=== PATIENT | male | born 1960 | race Caucasian/White ===

== ENCOUNTER → 2020-12-18 12:06 | Outpatient (BNVA) | payer OTHER, SELFPAY | PROVIDERS: Family Provider Family Medicine; PCP Family Medicine; Referring Provider Family Medicine; Visit Provider Orthopaedic Surgery | DX: S83.241A Other tear of medial meniscus, current injury, right knee, initial encounter (principal); X50.1XXA Overexertion from prolonged static or awkward postures, initial encounter; M25.569 Pain in unspecified knee | CPT/HCPCS: 73560; 73565 ==

== ENCOUNTER → 2020-12-29 13:35 | Outpatient (BNVA) | payer OTHER, SELFPAY | PROVIDERS: Family Provider Family Medicine; PCP Family Medicine; Visit Provider Orthopaedic Surgery | DX: Z01.812 Encounter for preprocedural laboratory examination (principal); Z20.828 Contact with and (suspected) exposure to other viral communicable diseases | CPT/HCPCS: 87635 ==

== ENCOUNTER 2021-01-04 07:53 | Day surgery (SDC) | payer OTHER, SELFPAY ==
[2021-01-03 13:35] VITALS: BMI 41.5
[2021-01-04] VITALS (11 sets, daily range): BP systolic 140–197; BP diastolic 78–118; PULSE 58–76; RESP 12–20; TEMP 36.1–36.6; O2SAT 94–98
[2021-01-04] MEDS: sodium chloride 0.9% 1,000 ML 30 ML IV (08:45)
--- NOTE | 2021-01-04 09:20 | W.PM.OPSUD ---
Surgery/Procedure H&P Update DATE OF PROCEDURE: January 04, 2021 DATE H&P PERFORMED: 01/18/21 PREOP DIAGNOSIS: Knee Right medial meniscal PLANNED PROCEDURE: Operation Date: 01/04/21 09:30 Proposed Procedures p right knee arthroscopy with medial meniscectomy (40672) S83.241A(Right) - Lg Najera MD
--- NOTE | 2021-01-04 09:25 | ANES.PREANE2 ---
Pre-Anesthetic Assessment Pre-Anesthetic Assessment: Height/Weight: Height 1.78 m Weight 131.542 kg Temp Pulse Resp BP Pulse Ox 97 F L 58 L 18 196/102 97 01/04/21 08:23 01/04/21 08:23 01/04/21 08:23 01/04/21 08:30 01/04/21 08:23 Preop Diagnosis: Knee Right medial meniscal Proposed Procedure: Operation Date: 01/04/21 09:30 Proposed Procedures p right knee arthroscopy with medial meniscectomy (25627) S83.241A(Right) - Lg Najera MD Was Beta Gil taken within 24 hours: Yes Was Clonidine taken within 24 hours: N/A Last intake: Intake Last Liquid Date 01/03/21 Last Liquid Time 20:00 Last Solid Date 01/03/21 Last Solid Time 16:30 Social: Social History: No alcohol and No tobacco Exam: Pre-Anes Outpt Exam: alert, oriented x 3, clear to auscultation bilaterally and regular rate & rhythm Airway: Submandibular: WNL Cervical ROM: WNL Dentition: False CV/HEM: CV/HEM: HTN Metabolic: Metabolic: Morbid obesity Anesthetic Plan: ASA status: 3 Anesthesia: General Risk of > 500 ml blood loss (7ml/kg in children): No Meds/Allergies Current Medications: Current Medications Generic Name Dose Route Start Last Admin Trade Name Freq PRN Reason Stop Dose Admin Sodium Chloride 1,000 mls @ 30 ml s/hr 01/04/21 08:15 01/04/21 08:45 Sodium Chloride 0.9% IV 01/05/21 08:14 30 mls/hr .Q24H ZHEN Administration Data Anesthesia Cardiac Studies: No Data to Display
[2021-01-04] MEDS: morphine 4 mg/mL SDV 1 mL 8 MG IM (09:45)
--- NOTE | 2021-01-04 10:33 | P.OP_ITS ---
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 He has areas of flaps and thinning over the central weightbearing aspect the medial femoral condyle but no point was exposed subchondral bone identified. He had thinning and flaps over the central patellar ridge Condition: stable Procedure: again with no exposed subchondral bone patient was taken to the operating room and given a general anesthesia. He was prepped and draped in the supine position with a tourniquet on the right thigh. The tourniquet was never inflated. He was given 2 g of Ancef. A timeout was performed. The knee was entered through a standard inferior medial and inferior lateral portal. Once in the knee the complex tearing the meniscus was divided. Additionally central flaps from the posterior third of the medial meniscus were debrided back with incisor shaver. This rim was then cleaned up with the [employer] Werewolf probe on the medium setting. This left approximately 40% of the superior peripheral meniscus remaining. A larger flap was identified within the notch and the [employer]hew Werewolf probe was used to debride this back to a stable base. Attention was then focused on chondral surfaces. Utilizing the G[employer] Nephew Werewolf probe unstable flaps over the medial femoral condyle weightbearing surface were debrided back to stable margins. At no point was exposed subch ondral bone identified. The leg was then placed in a [id number] position revealing a healthy lateral compartment. Finally attention was focused on the patella. The werewolf probe was used to debride unstable flaps about the central ridge of back. This involved removal perhaps just over 50% of the central patellar cartilage. The knee was irrigated with saline. Portals were closed with 3-0 Prolene. Sterile dressings were applied. The patient was extubated taken to recovery room in stable condition.
[2021-01-04] MEDS: fentaNYL 50 mcg/mL INJ 2mL IVP (10:43)
[2021-01-04] MEDS: hyDRALAzine 20 mg/mL INJ 1 mL 5 MG IVP (10:50)
[2021-01-04] MEDS: ondansetron 2 mg/ML SDV 2 mL 4 MG IVP (11:34)
[2021-01-04] MEDS: HYDROcodone-acetaminophen 5-325 mg Tablet 1 TAB PO (11:35)
--- NOTE | 2021-01-04 14:44 | ANE.PACU2 ---
Inpatient post-anesthesia follow up: Airway intact: Yes Vital signs: Temperature 97.9 F Pulse Rate 74 Respiratory Rate 18 Blood Pressure 147/78 Pulse Oximetry 98 Oxygen Delivery Me thod Room Air Oxygen Flow Rate Fraction of Inspir ed Oxygen Hydration adequate: Yes Nausea and vomiting: No Pain level: 2 Mental status: Baseline
== END 2021-01-04 12:27 | disposition home or self-care (01) ==
PROVIDERS: PCP Family Medicine; Visit Provider Orthopaedic Surgery
PROC: (CPT 29870; principal; 2021-01-04 09:20)
DX: S83.241A Other tear of medial meniscus, current injury, right knee, initial encounter (principal); X50.1XXA Overexertion from prolonged static or awkward postures, initial encounter; I10 Essential (primary) hypertension; E66.01 Morbid (severe) obesity due to excess calories; Z68.41 Body mass index [BMI] 40.0-44.9, adult; Z79.82 Long term (current) use of aspirin
CPT/HCPCS: 29881; 96365; J0360; J0690; J2270; J2405; J2704; J3010; J3490; J7030

== ENCOUNTER 2021-09-25 09:17 | Outpatient (CLI) | payer OTHER, SELFPAY ==
--- NOTE | 2021-09-25 09:22 | USCV_ITS ---
Amando Noonan Age: 61 Gender: M : 1960 Exam Date: 09/25/2021 09:51 Ordering Phys: Ashkan Soto Technologist: Exam Location: [facility] – [place] Indication: LT LEG PAIN HISTORY: Lower extremity pain. PROCEDURES: Venous duplex imaging was performed in only the left lower extremity. The following venous structures were evaluated: common femoral vein, profunda vein, proximal portion of the greater saphenous vein, superficial femoral vein, and the popliteal vein. In addition, the posterior tibial and peroneal trunk were evaluated. On the left side, the common femoral, superficial femoral, profunda femoral, popliteal, posterior tibial, greater saphenous veins, and the peroneal trunk were identified and interrogated in the standard fashion. These veins were found to be easily compressible with spontaneous blood flow. No evidence of insufficiency or thrombus noted. FINDINGS: Normal 2-D Doppler and augmentation and compressibility throughout the lower extremity venous structures. Additional imaging through the proximal calf veins also reveals no thrombus. Limited evaluation of the greater saphenous vein is patent with no thrombus.. CONCLUSIONS No evidence of left lower extremity DVT. Garth Worley MD (Electronically Signed) Final Date: 25 September 2021 16:27 S
== END 2021-09-25 09:18 | disposition home or self-care (01) ==
LOC: RAD 09:19
PROVIDERS: PCP Family Medicine; Visit Provider Clinical Nurse Specialist Adult Health
DX: M79.605 Pain in left leg (principal)
CPT/HCPCS: 93971

== ENCOUNTER → 2022-08-21 10:19 | Outpatient (BNVA) | payer OTHER, SELFPAY | PROVIDERS: PCP Family Medicine; Visit Provider Family Medicine | DX: I10 Essential (primary) hypertension (principal); Z00.00 Encounter for general adult medical examination without abnormal findings | CPT/HCPCS: 80053; 80061 ==

== ENCOUNTER → 2023-09-05 08:04 | Outpatient (BNVA) | payer OTHER, SELFPAY | PROVIDERS: PCP Family Medicine; Visit Provider Family Medicine | DX: Z00.00 Encounter for general adult medical examination without abnormal findings (principal) | CPT/HCPCS: 80053; 80061 ==

== ENCOUNTER → 2024-10-22 08:12 | Outpatient (BNVA) | payer OTHER, SELFPAY | PROVIDERS: PCP Family Medicine; Visit Provider Family Medicine | DX: I10 Essential (primary) hypertension (principal); R35.1 Nocturia | CPT/HCPCS: 80053; 80061; 83036; 84153; 85025 ==

== ENCOUNTER → 2025-01-20 07:48 | Outpatient (BNVA) | payer OTHER, SELFPAY | PROVIDERS: PCP Family Medicine; Visit Provider Family Medicine | DX: I10 Essential (primary) hypertension (principal) | CPT/HCPCS: 80048; 83735 ==

== ENCOUNTER 2025-01-25 06:21 | Day surgery (SDC) | payer OTHER, SELFPAY ==
[2025-01-25 06:41] VITALS: BP 197/115; PULSE 63; RESP 18; TEMP 36.1; O2SAT 96; BMI 40.4
[2025-01-25] MEDS: sodium chloride 0.9% 1,000 ML 15 ML IV (06:52)
--- NOTE | 2025-01-25 07:06 | W.PM.OPSFHP ---
Same Day Surgery H&P Indication for Procedure/HPI DATE OF PROCEDURE: January 25, 2025 CHIEF COMPLAINT/INDICATIONFOR SURGICAL PROCEDURE: screening colonoscopy PREOP DIAGNOSIS: screening colonoscopy PLANNED PROCEDURE: Operation Date: 01/25/25 07:30 Proposed Procedures p Colonoscopy 18201 G0121 Z12.11(Not Applicable) - Anoop Hu MD Medications/Allergies* Home Medications ?Medication ?Instructions ?Recorded ?Confirmed ?Type aspirin 81 mg chewable tablet 81 mg PO DAILY 12/18/20 01/25/25 History multivitamin 1 tab PO DAILY 12/09/24 01/25/25 History turmeric 400 mg capsule 400 mg PO BID 12/09/24 01/25/25 History metoprolol tartrate 100 mg tablet 100 mg PO DAILY 12/22/24 01/20/25 History Allergies/Adverse Reactions Allergy/AdvReac Type Severity Reaction Status Date / Time No Known Allergies Allergy Verified 01/19/25 12:58 Current Medications: Generic Name Dose Route Start Last Admin Trade Name Freq PRN Reason Stop Dose Admin Sodium Chloride 1,000 mls @ 15 mls/hr 01/25/25 06:32 01/25/25 06:52 Sodium Chloride 0.9% IV 01/26/25 06:31 15 mls/hr .Q24H PRN Administration COLONOSCOPY FLUIDS Pertinent History/Comorbid Conditions* Medical History (Updated 01/20/25 @ 07:44 by Roberto Aguilera MD) Hypertension Family History (Updated 12/09/24 @ 08:01 by FARSHAD Reveles) Diabetes Mother Father Hypertension Mother Father Social History Smoking and tobacco/nicotine status: unknown if used tobacco/nicotine Pertinent Exam Findings alert, oriented x 3, clear to auscultation bilaterally, regular rate & rhythm and procedure specific exam findings abdomen soft, nt, nd Recommendations Risks and benefits of procedure reviewed Surgery/Procedure today Coding Level of Care Code Acute Code for Chg Fwd
--- NOTE | 2025-01-25 07:06 | ANES.PREANE2 ---
Pre-Anesthetic Assessment Height/Weight: Height 1.8 m Weight 131.542 kg Temp Pulse Resp BP Pulse Ox O2 Del Method 97 F L 63 18 197/115 96 Room Air 01/25/25 06:41 01/25/25 06:41 01/25/25 06:41 01/25/25 06:41 01/25/25 06:41 01/25/25 06:41 Preop Diagnosis: Anemia Operation Date: 01/25/25 07:30 Proposed Procedures p Colonoscopy 77398 G0121 Z12.11(Not Applicable) - Anoop Hu MD Familial anesthetic complications: none Was Beta Gil taken within 24 hours: Yes Was Clonidine taken within 24 hours: N/A Last intake: Intake Last Liquid Date 01/24/25 Last Liquid Time 18:00 Last Solid Date 01/23/25 Last Solid Time 16:00 Social No alcohol and No tobacco Exam alert, oriented x 3, clear to auscultation bilaterally and regular rate & rhythm distant heart/breath sounds Airway Cervical ROM: within normal limits Mallampati: Class III Dentition: false Comments: Comments: short thick neck Pulmonary Sleep Apnea (probable) CV/HEM Hypertension None reported Hepatic None reported GI Gastroesophageal Reflux Disease Metabolic Morbid Obesity [facility] [place] None reported Neuropsych None reported Anesthetic Plan ASA status: 3 Anesthesia: MAC Risk of > 500 ml blood loss (7ml/kg in children): No Medications/Allergies Home Medications ?Medication ?Instructions ?Recorded ?Confirmed ?Last Taken ?Type aspirin 81 mg chewable tablet 81 mg PO DAILY 12/18/20 01/25/25 01/23/25 History losartan 50 mg tablet 50 mg PO DAILY #90 tabs 11/12/24 01/20/25 01/24/25 Rx multivitamin 1 tab PO DAILY 12/09/24 01/25/25 01/23/25 History turmeric 400 mg capsule 400 mg PO BID 12/09/24 01/25/25 01/23/25 History metoprolol tartrate 100 mg tablet 100 mg PO DAILY 12/22/24 01/20/25 01/25/25 History chlorthalidone 50 mg tablet 50 mg PO DAILY #30 tabs 01/20/25 01/25/25 01/23/25 Rx meloxicam 15 mg tablet See Rx Instructions .Route 01/21/25 01/25/25 01/23/25 Rx .COMPLEX #30 tabs Allergies Allergy/AdvReac Type Severity Reaction Status Date / Time No Known Allergies Allergy Verified 01/19/25 12:58 Current Medications Generic Name Dose Route Start Last Admin Trade Name Freq PRN Reason Stop Dose Admin Sodium Chloride 1,000 mls @ 15 mls/hr 01/25/25 06:32 01/25/25 06:52 Sodium Chloride 0.9% IV 01/26/25 06:31 15 mls/hr .Q24H PRN Administration COLONOSCOPY FLUIDS PFSH Anesthesia Medical History Hypertension Family History Mother Diabetes Hypertension Father Diabetes Hypertension Social History Smoking and tobacco/nicotine status: unknown if used tobacco/nicotine Data Anesthesia Cardiac Studies: No Data to Display
[2025-01-25 07:47] VITALS: BP 186/114; PULSE 65; RESP 14; TEMP 36.3; O2SAT 96
[2025-01-25 08:07] VITALS: BP 156/88; PULSE 64; RESP 16; O2SAT 96
--- NOTE | 2025-01-25 08:20 | ANE.PACU2 ---
Inpatient post-anesthesia follow up: Airway intact: Yes Vital signs: Temperature 97.4 F Pulse Rate 64 Respiratory Rate 16 Blood Pressure 156/88 Pulse Oximetry 96 Oxygen Delivery Me thod Room Air Oxygen Flow Rate Fraction of Inspir ed Oxygen Hydration adequate: Yes Nausea and vomiting: No Pain level: 1 Mental status: Baseline
--- NOTE | 2025-01-25 08:20 | SUR.PHASEII ---
Received report from MAYI Cornejo regarding high blood pressure prior to and during procedure, she had administered hydralazine 10 mg. Informed Chantal of pt's decreased post-op BP. See documentation. Chantal instructed pt to take his prescribed BP medication when he returns home, approved discharge.
== END 2025-01-25 08:20 | disposition home or self-care (01) ==
PROVIDERS: PCP Family Medicine; Visit Provider Student in an Organized Health Care Education/Training Program
PROC: 0DJD8ZZ Inspection of Lower Intestinal Tract, Via Natural or Artificial Opening Endoscopic (ICD-10-PCS; CPT 45378; principal; 2025-01-25 07:30)
DX: Z12.11 Encounter for screening for malignant neoplasm of colon (principal); I10 Essential (primary) hypertension; G47.30 Sleep apnea, unspecified; K21.9 Gastro-esophageal reflux disease without esophagitis; E66.01 Morbid (severe) obesity due to excess calories; Z68.41 Body mass index [BMI] 40.0-44.9, adult; Z79.82 Long term (current) use of aspirin; Z79.899 Other long term (current) drug therapy
CPT/HCPCS: 45378; J0360; J2704; J7030

== ENCOUNTER → 2025-06-09 09:45 | Outpatient (BNVA) | payer OTHER, SELFPAY | PROVIDERS: PCP Family Medicine; Visit Provider Family Medicine | DX: R10.9 Unspecified abdominal pain (principal); R51.9 Headache, unspecified | CPT/HCPCS: 80053; 83690; 85025; 86003; 86008 ==

== ENCOUNTER → 2025-08-02 12:17 | Outpatient (BNVA) | payer OTHER, SELFPAY | PROVIDERS: PCP Family Medicine; Visit Provider Family Medicine | DX: R10.9 Unspecified abdominal pain (principal) | CPT/HCPCS: 80053; 83690; 85025; 86140 ==

== ENCOUNTER 2025-08-03 08:21 | Emergency (ER) | payer OTHER, SELFPAY ==
[2025-08-03 08:36] VITALS: BP 130/79; PULSE 63; RESP 18; TEMP 36.8; O2SAT 95; BMI 41.4
--- OUTSIDE RECORDS SUMMARY | 2025-08-03 08:37 | XMS_ITS | Encounter Summary ---
Author Organization [facility] Address [address] [place] [address] Care Team Providers Care Condominium Manager Name Role Phone Unavailable Primary Care Provider Unavailabl e Encounter Details Date Type Department Care Team (Latest Contact Info) Description 07/09/2002 Outpatient Historical HIS [facility] Alphonse Solis MD [address] [place] [address] HYPERTENSION NOS (Primary Dx); Benign mary skin trunk Social History Tobacco Use Types Packs/Day Years Used Date Smoking Tobacco: Never Assessed Sex and Gender Information Value Date Recorded Sex Assigned at Not on file 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
--- OUTSIDE RECORDS SUMMARY | 2025-08-03 08:37 | XMS_ITS | Encounter Summary ---
Author Organization [facility] Address [address] [place] [address] Care Team Providers Care Science Intern Name Role Phone Unavailable Primary Care Provider Unavailabl e Encounter Details Date Type Department Care Team (Latest Contact Info) Description 01/06/2001 Outpatient Historical HIS [facility] Sunny Evans NO ADDRESS ON FILE Unspecified essential hypertension (Primary Dx); Chest pain, unspecified; Unspecified adjustment reaction Social History Tobacco Use Types Packs/Day Years Used Date Smoking Tobacco: Never Assessed Sex and Gender Information Value Date Recorded Sex Assigned at Not on file 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
--- OUTSIDE RECORDS SUMMARY | 2025-08-03 08:37 | XMS_ITS | Encounter Summary ---
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
--- OUTSIDE RECORDS SUMMARY | 2025-08-03 08:37 | XMS_ITS | Encounter Summary ---
Author Organization [facility] Address [address] [place] [address] Care Team Providers Care Senior It Recruiter Name Role Phone Unavailable Primary Care Provider Unavailabl e Encounter Details Date Type Department Care Team (Latest Contact Info) Description 04/27/2002 Outpatient Historical HIS [facility] Alphonse Solis MD [address] [place] [id number] HYPERTENSION NOS (Primary Dx) Social History Tobacco Use Types Packs/Day Years Used Date Smoking Tobacco: Never Assessed Sex and Gender Information Value Date Recorded Sex Assigned at Not on file 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
--- OUTSIDE RECORDS SUMMARY | 2025-08-03 08:37 | XMS_ITS | Encounter Summary ---
Author Organization [facility] Address [address] [place] [address] Care Team Providers Care Cell Inspector Name Role Phone Unavailable Primary Care Provider Unavailabl e Encounter Details Date Type Department Care Team (Latest Contact Info) Description 07/06/2002 Outpatient Historical HIS [facility] Alphonse Solis MD [address] [place] [address] HYPERTENSION NOS (Primary Dx); OBESITY NOS Social History Tobacco Use Types Packs/Day Years Used Date Smoking Tobacco: Never Assessed Sex and Gender Information Value Date Recorded Sex Assigned at Not on file 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
--- OUTSIDE RECORDS SUMMARY | 2025-08-03 08:37 | XMS_ITS | Encounter Summary ---
Author Organization [facility] Address [address] Attn: [place] [address] Care Team Providers Care Advertising Operations Coordinator Name Role Phone Unavailable Primary Care Provider Unavailabl e Encounter Details Date Type Department Care Team (Late st Contact Info) Description 07/12/2002 Outpatient Historical Alphonse Solis MD [address] [place] [address] Social History Tobacco Use Types Packs/Day Years Used Date Smoking Tobacco: Never Assessed Sex and Gender Information Value Date Recorded Sex Assigned at Not on file 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
--- OUTSIDE RECORDS SUMMARY | 2025-08-03 08:37 | XMS_ITS | Encounter Summary ---
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
--- OUTSIDE RECORDS SUMMARY | 2025-08-03 08:37 | XMS_ITS | Encounter Summary ---
Author Organization [facility] Address [address] [place] [address] Care Team Providers Care General Merchandise Salesperson Name Role Phone Unavailable Primary Care Provider Unavailabl e Encounter Details Date Type Department Care Team (Latest Contact Info) Description 06/29/2002 Outpatient Historical HIS [facility] Alphonse Solis MD [address] [place] [address] HYPERTENSION NOS (Primary Dx); AFTERCARE CHARTER COORDINATOR USE MEDICATN Social History Tobacco Use Types Packs/Day Years Used Date Smoking Tobacco: Never Assessed Sex and Gender Information Value Date Recorded Sex Assigned at Not on file 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
--- OUTSIDE RECORDS SUMMARY | 2025-08-03 08:38 | XMS_ITS | Encounter Summary ---
Author Organization [facility] Address [address] [place] [address] Care Team Providers Care Strapper Operator Name Role Phone Unavailable Primary Care Provider Unavailabl e Encounter Details Date Type Department Care Team (Latest Contact Info) Description 10/12/2002 Outpatient Historical HIS [facility] Alphonse Solis MD [address] [place] [phone] HYPERTENSION NOS (Primary Dx) Social History Tobacco Use Types Packs/Day Years Used Date Smoking Tobacco: Never Assessed Sex and Gender Information Value Date Recorded Sex Assigned at Not on file 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
--- OUTSIDE RECORDS SUMMARY | 2025-08-03 08:38 | XMS_ITS | Encounter Summary ---
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
--- OUTSIDE RECORDS SUMMARY | 2025-08-03 08:38 | XMS_ITS | Clinical Summary ---
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
[2025-08-03 10:17] LABS: ABG PCO2 35.1 mmHg (35-45); ABG PH Result 7.49 (7.35-7.45); Alveolar-Arterial Oxygen Gradi 5.2 mmHg (5-10); Arterial Blood Gas Hematocrit 49.4 % (42-52); Blood Gas Allen Test Pos; Blood Gas Sample Site Brachial, right; Blood Gas Sample Type Arterial; Carboxyhemoglobin 0.8 %THgb (0.4-20.1); Glucose Level-ABG 401.0 mg/dL (70-115); HCO3 ABG 26.6 mmol/L (22-26); Ionized Calcium Level - ABG 1.2 mmol/L (1.1-1.4); Methemoglobin 0.9 % (0.4-1.5); Oxygen Saturation ABG 94.2; PO2 ABG 64.0 mmHg (80.0-100.0); PO2 FiO2 Ratio Arterial Blood 304; Potassium Level - ABG 3.0 mmol/L (3.5-5.0); Sodium Level - ABG 132.0 mmol/L (131-143)
[2025-08-03 10:45] LABS: Hematocrit 45.2 % (37-53); Hemoglobin 15.20 g/dL (11.27-16.99); Mean Corpuscular HGB Conc 33.6 g/dL (30-55); Mean Corpuscular Hemoglobin 27.2 pg (27-33); Mean Corpuscular Volume 80.9 fl (82-101); Nucleated Red Blood Cells % 0 %; Platelet Count 246 10^3/cmm (157-399); Red Blood Count 5.59 10^6/uL (3.85-5.65); White Blood Count 10.34 10^3/uL (3.29-11.43)
[2025-08-03 11:05] LABS: Alanine Aminotransferase 49 U/L (0-41); Albumin Level 4.0 g/dL (3.5-5.2); Alkaline Phosphatase 95 U/L (40-130); Anion Gap 17.8 (5-19); Aspartate Amino Transferase 39 U/L (0-40); Blood Urea Nitrogen 24 mg/dL (8-23); Calcium 9.4 mg/dL (8.5-10.5); Carbon Dioxide 24 mmol/L (22-29); Chloride 90 mmol/L (98-107); Creatinine Clr Calc Pharmacy 114.3536; Globulin 3.2 g/dL (1.3-4.6); Glucose 399 mg/dL (65-115); Osmolality Calculated 289 mOsm/kg (285-295); Sodium 129 mmol/L (136-145); Total Protein 7.2 g/dL (6.6-8.7)
[2025-08-03 11:06] LABS: Potassium 2.8 mmol/L (3.5-5.1)
--- NOTE | 2025-08-03 11:07 | W.ED.GENADLT ---
HPI - General Adult General: Chief complaint: General Medical Stated complaint: Dr valle abnormal Labs Time Seen by Provider: 08/03/25 11:05 History of Present Illness: 65-year-old male with a history of obesity, alpha gal and hypertension who presents emergency room with concerns for hyperglycemia. He had been having some abdominal pain for couple of weeks and saw his PCP yesterday ordered lab work and a CT scan. Lab work came back and his glucose was elevated so his doctor told him to come to the emergency room for fluids. He says because of alpha gal he has been getting nauseous every time he eats. He has had some general malaise lately. Some nausea but no vomiting Related Data Home Medications ?Medication ?Instructions ?Recorded ?Confirmed aspirin 81 mg chewable tablet 81 mg PO DAILY 12/18/20 08/03/25 multivitamin 1 tab PO DAILY 12/09/24 08/03/25 metoprolol tartrate 100 mg tablet 100 mg PO BID 12/22/24 08/03/25 meloxicam 15 mg tablet 15 mg PO DAILY 08/03/25 08/03/25 Previous Rx's ?Medication ?Instructions ?Recorded losartan 50 mg tablet 50 mg PO DAILY #90 tabs 11/12/24 chlorthalidone 50 mg tablet 50 mg PO DAILY #90 tabs 02/10/25 epinephrine 0.3 mg/0.3 mL 0.3 mg (0.3 mL) IM Q4H PRN 07/01/25 injection, auto-injector (EpiPen anaphylaxis #2 ea 2-Kevin) glimepiride 1 mg tablet 1 mg PO BID #60 tabs 08/03/25 potassium chloride 40 mEq/15 mL 40 meq (15 mL) PO DAILY 5 days 08/03/25 oral liquid #105 mL Allergies Allergy/AdvReac Type Severity Reaction Status Date / Time Alpha-Gal Allergy ADR-Nausea Verified 08/03/25 08:45 ([id number],3-Gala Review of Systems Narrative: Constitutional symptoms: Negative except as documented in HPI. Skin symptoms: Negative except as documented in HPI. Eye symptoms: Negative except as documented in HPI. ENMT symptoms: Negative except as documented in HPI. Respiratory symptoms: Negative except as documented in HPI. Cardiovascular symptoms: Negative except as documented in HPI. Gastrointestinal symptoms: Negative except as documented in HPI. Genitourinary symptoms: Negative except as documented in HPI. Musculoskeletal symptoms: Negative except as documented in HPI. Neurologic symptoms: Negative except as documented in HPI. Psychiatric symptoms: Negative except as documented in HPI. Endocrine symptoms: Negative except as documented in HPI. [facility] ED PFSH: Medical History (Updated 08/03/25 @ 12:58 by Simi Murphy MD) Alpha-gal syndrome Hypertension Family History Mother Diabetes Hypertension Father Diabetes Hypertension Social History Smoking and tobacco/nicotine status: never used tobacco/nicotine Physical Exam Narrative: EXAM NARRATIVE: General: Alert, no acute distress. Skin: Warm, dry. Head: Normocephalic, atraumatic. Neck: Supple, trachea midline. Eye: Extraocular movements are intact. Ears, nose, mouth and throat: Tacky oral mucosa Cardiovascular: Regular, Normal peripheral perfusion. Respiratory: Lungs are clear to auscultation, respirations are non-labored, breath sounds are equal, Symmetrical chest wall expansion. Gastrointestinal: Soft, Nontender, Non distended Musculoskeletal: Normal ROM, no deformity. Neurological: Alert and oriented, No focal neurological deficit observed. Psychiatric: Cooperative, appropriate mood & affect. Course Vital Signs: Vital signs: Vital Signs Temperature 98.2 F 08/03/25 08:36 Pulse Rate 64 08/03/25 11:30 Respiratory Rate 18 08/03/25 11:14 Blood Pressure 163/87 08/03/25 11:30 Pulse Oximetry 97 08/03/25 11:30 Oxygen Delivery Me thod Room Air 08/03/25 11:30 MDM - General Adult Medical Decision Making Medical decision making: Patient's reason for coming to the emergency room: Abnormal labs. Hyperglycemia Social determinants: Patient is retired. He has family present at this visit I reviewed the patient's medical record. 65-year-old male with a history of obesity, alpha gal and hypertension. I reviewed yesterday's clinic note. I reviewed the patient's current home meds Patient currently on chlorthalidone, metoprolol and losartan for his blood pressure Alternate historians: None Differential diagnosis for the patient with hyperglycemia would include but not be limited to and would be based on the above HPI review of systems and physical exam: DKA. Dehydration. Renal failure. Concern for electrolyte abnormalities. Concern for underlying infection that might result in hyperglycemia. Medical non-compliance. Orders placed to evaluate differential diagnosis of the patient with hyperglycemia are based on the above differential, HPI and physical exam. Lab Review: Laboratory results were reviewed and interpreted by myself the emergency room physician. No leukocytosis. No anemia. Sodium is a bit low but this is secondary to his sugar being high. Potassium is 2.8 this is being replaced. Glucose is 400 on BMP. BUN is a little elevated which would indicate some dehydration. Urinalysis negative for infection. Hemoglobin A1c was quite elevated at 10. Lipase negative. Assessment of risk: Level of risk: Moderate Hospitalization considerations: Hospitalization was considered but the patient is not in DKA or renal failure. Reexamination: Patient remained stable. No increased work of breathing. No altered mental status. No focal motor deficits. Patient says he feels considerably better. Sugar was still 390 1:09 liter of fluids. Giving 10 units of insulin and he will start glimepiride this evening. Consultation: I spoke with Dr. Brantley the patient's primary provider. He recommends glimepiride 1 mg p.o. twice daily and will follow with the patient. He has a CT ordered of his abdomen for the near future. Assessment and plan: Type 2 diabetes mellitus Hyperglycemia Dehydration Hypokalemia ?40 mill equivalents p.o. potassium, normal saline bolus, 10 units IV insulin. - Discharged home - Discussed plan with patient. Answered any questions. - Evaluation and treatment of this problem were appropriate in the emergency setting. Lab Data 08/03/25 10:39 08/03/25 10:39 Laboratory Results WBC 10.34 10^3/uL (3.29-11.43) 08/03/25 10:39 RBC 5.59 10^6/uL (3.85-5.65) 08/03/25 10:39 Hgb 15.20 g/dL (11.27-16.99) 08/03/25 10:39 Hct 45.2 % (37-53) 08/03/25 10:39 MCV 80.9 fl (82-101) L 08/03/25 10:39 MCH 27.2 pg (27-33) 08/03/25 10:39 MCHC 33.6 g/dL (30-55) 08/03/25 10:39 RDW 13.2 % (12.1-15.1) 08/03/25 10:39 Plt Count 246 10^3/cmm (157-399) 08/03/25 10:39 MPV 10.0 fL (7.4-10.4) 08/03/25 10:39 Neut % (Auto) 70.2 % 08/03/25 10:39 Lymph % (Auto) 19.2 % 08/03/25 10:39 [place] % (Auto) 7.0 % 08/03/25 10:39 Eos % (Auto) 2.7 % 08/03/25 10:39 Baso % (Auto) 0.7 % 08/03/25 10:39 Neut # (Auto) 7.26 10^3/uL (1.8-7.7) 08/03/25 10:39 Lymph # (Auto) 2.0 10^3/uL (0.8-4.8) 08/03/25 10:39 [place] # (Auto) 0.7 10^3/uL (0.2-0.9) 08/03/25 10:39 Eos # (Auto) 0.3 10^3/uL (0.0-0.8) 08/03/25 10:39 Baso # (Auto) 0.1 10^3/uL (0.0-0.1) 08/03/25 10:39 Nucleated RBC % (auto) 0 % 08/03/25 10:39 Nucleated RBCs # 0.0 /100WBC 08/03/25 10:39 Specimen Type Arterial 08/03/25 10:09 Sample Site Brachial, right 08/03/25 10:09 ABG pH 7.49 (7.35-7.45) H 08/03/25 10:09 ABG pCO2 35.1 mmHg (35-45) 08/03/25 10:09 ABG pO2 64.0 mmHg (80.0-100.0) L 08/03/25 10:09 ABG PO2/FiO2 Ratio 304 08/03/25 10:09 ABG HCO3 26.6 mmol/L (22-26) H 08/03/25 10:09 ABG O2 Saturation 94.2 08/03/25 10:09 ABG Base Excess 3.5 mmol/L (-2.0-2.0) H 08/03/25 10:09 Gio Test Pos 08/03/25 10:09 A-a O2 Gradient 5.2 mmHg (5-10) 08/03/25 10:09 Hematocrit 49.4 % (42-52) 08/03/25 10:09 Hgb O2 Saturation 92.6 % (95-100) L 08/03/25 10:09 Carboxyhemoglobin 0.8 %THgb (0.4-20.1) 08/03/25 10:09 Methemoglobin 0.9 % (0.4-1.5) 08/03/25 10:09 Total Hemoglobin 16.1 g/dL (14-18) 08/03/25 10:09 Sodium 132.0 mmol/L (131-143) 08/03/25 10:09 Potassium 3.0 mmol/L (3.5-5.0) L 08/03/25 10:09 Glucose 401.0 mg/dL (70-115) H 08/03/25 10:09 Ionized Calcium 1.2 mmol/L (1.1-1.4) 08/03/25 10:09 O2 Delivery Device Room air 08/03/25 10:09 FiO2 21.0 % 08/03/25 10:09 Machine Operator Cane Cutter ID [email or web address] 08/03/25 10:09 Sodium 129 mmol/L (136-145) L 08/03/25 10:39 Potassium 2.8 mmol/L (3.5-5.1) L* 08/03/25 10:39 Chloride 90 mmol/L (98-107) L 08/03/25 10:39 Carbon Dioxide 24 mmol/L (22-29) 08/03/25 10:39 Anion Gap 17.8 (5-19) 08/03/25 10:39 BUN 24 mg/dL (8-23) H 08/03/25 10:39 Creatinine 0.9 mg/dL (0.7-1.2) 08/03/25 10:39 GFR Calculation 85.2 mL/min (90-130) L 08/03/25 10:39 Glucose 399 mg/dL (65-115) H 08/03/25 10:39 POC Glucose 399 mg/dL (70-110) H 08/03/25 12:52 Estimat Average Glucose 240 08/03/25 10:39 Hemoglobin A1c 10.0 % (4.0-6.0) H 08/03/25 10:39 Calculated Osmolality 289 mOsm/kg (285-295) 08/03/25 10:39 Calcium 9.4 mg/dL (8.5-10.5) 08/03/25 10:39 Total Bilirubin 0.7 mg/dL (0.15-1.2) 08/03/25 10:39 AST 39 U/L (0-40) 08/03/25 10:39 ALT 49 U/L (0-41) H 08/03/25 10:39 Alkaline Phosphatase 95 U/L (40-130) 08/03/25 10:39 Total Protein 7.2 g/dL (6.6-8.7) 08/03/25 10:39 Albumin 4.0 g/dL (3.5-5.2) 08/03/25 10:39 Globulin 3.2 g/dL (1.3-4.6) 08/03/25 10:39 Lipase 50 U/L (13-60) 08/03/25 10:39 Urine Color Dark yellow (Yellow) A 08/03/25 11:35 Urine Appearance Clear (CLEAR) 08/03/25 11:35 Urine pH 6.0 (5-7) 08/03/25 11:35 Ur Specific [place] 1.028 (1.005-1.030) 08/03/25 11:35 Urine Protein 1+ (Negative) A 08/03/25 11:35 Urine Glucose (UA) 3+ (Normal) H 08/03/25 11:35 Urine Ketones 1+ (Negative) H 08/03/25 11:35 Urine Blood Negative (Negative) 08/03/25 11:35 Urine Nitrate Negative (Negative) 08/03/25 11:35 Urine Bilirubin 1+ (Negative) H 08/03/25 11:35 Urine Urobilinogen 1.0 mg/dL (Negative) 08/03/25 11:35 Ur Leukocyte Esterase Negative (Negative) 08/03/25 11:35 Urine RBC 0-2 /hpf (0-2) 08/03/25 11:35 Urine WBC 0-5 /hpf (0-5) 08/03/25 11:35 Ur Squamous Epith Cells 0-5 /hpf (0-5) 08/03/25 11:35 Amorphous Sediment Not Reportable 08/03/25 11:35 Urine Bacteria None seen /hpf (NONE) 08/03/25 11:35 Hyaline Casts 11.57 /lpf 08/03/25 11:35 Serum Ketones Negative (Negative) 08/03/25 10:39 No radiology studies performed this visit Discharge Plan Discharge Patient Disposition: Home Clinical Impression: Hyperglycemia, Dehydration, New onset type 2 diabetes mellitus, Hypokalemia Condition: Stable Prescriptions: New glimepiride 1 mg tablet 1 mg PO BID Qty: 60 1RF Rx Instructions: administer with breakfast potassium chloride 40 mEq/15 mL liquid 40 meq PO DAILY 5 Days Qty: 105 0RF No Action aspirin 81 mg tablet,chewable 81 mg PO DAILY chlorthalidone 50 mg tablet 50 mg PO DAILY Qty: 90 11RF multivitamin Tablet 1 tab PO DAILY losartan 50 mg tablet 50 mg PO DAILY Qty: 90 3RF epinephrine [EpiPen 2-Kevin] 0.3 mg/0.3 mL auto-injector 0.3 mg IM Q4H PRN (Reason: anaphylaxis) Qty: 2 1RF meloxicam 15 mg tablet 15 mg PO DAILY metoprolol tartrate 100 mg tablet 100 mg PO BID Discharge Orders: Discharge ED (Routine); Ordered 08/03/25 Ordered By: Simi Murphy Referrals: Roberto Aguilera MD [Primary Care Provider, Family Practice] Discharge Diet: Usual diet Discharge Activity: Increase activity as tolerated Patient Instructions: Opioid Safety, Pain Management, Patient Portal & Wilber Instructions Print Language: Japanese Coding Level of Care Code ED [employer] Pilot for Jolly Flores
[2025-08-03 11:09] LABS: Ketone (Acetest) Serum Negative (Negative)
[2025-08-03 11:14] VITALS: BP 145/82; PULSE 69; RESP 18; O2SAT 96
[2025-08-03 11:30] VITALS: BP 163/87; PULSE 64; O2SAT 97
[2025-08-03] MEDS: potassium chloride oral liq 20 mEq/15 mL UDC 40 MEQ PO (12:00)
[2025-08-03 12:10] LABS: Glucose Urine UA 3+ (Normal); Nitrate Urine Negative (Negative); Specific Gravity, Urine 1.028 (1.005-1.030)
[2025-08-03 12:15] LABS: Add Urine Microscopic? YES
[2025-08-03 12:18] LABS: UA Slide Review UA Slide Review Perf
[2025-08-03 12:26] LABS: Estmated Average Glucose 240; Hemoglobin A1C 10.0 % (4.0-6.0)
[2025-08-03 12:44] LABS: Lipase 50 U/L (13-60)
[2025-08-03] MEDS: insulin regular-human 100 units/1 mL 10 UNIT IVP (13:35)
[2025-08-03 13:37] VITALS: BP 163/84; PULSE 82; O2SAT 99
== END 2025-08-03 13:38 | disposition home or self-care (01) ==
PROVIDERS: Family Medicine; Emergency Provider Emergency Medicine; PCP Family Medicine
DX: E11.65 Type 2 diabetes mellitus with hyperglycemia (principal); E86.0 Dehydration; E87.6 Hypokalemia; Z79.82 Long term (current) use of aspirin; I10 Essential (primary) hypertension
CPT/HCPCS: 36415; 36416; 36600; 80051; 80053; 81001; 82009; 82330; 82805; 82962; 83036; 83690; 85025; 96361; 96374; 99284; J1815; J7030; J9999

== ENCOUNTER 2025-08-04 15:35 | Outpatient (CLI) | payer OTHER, SELFPAY ==
--- NOTE | 2025-08-04 16:15 | CT_ITS ---
WS: [id number] CT ABDOMEN AND PELVIS WITH CONTRAST HISTORY: abd pain, upper abdominal discomfort. TECHNIQUE: Imaging performed of the abdomen and pelvis with IV contrast. Single phase imaging of the abdomen. Coronal and sagittal reformats are submitted. All CT scans at [facility] use at least one of these dose optimization techniques: automated exposure control; mA and/or kV adjustment per patient size (includes targeted exams where dose is matched to clinical indication); or iterative reconstruction. IV CONTRAST: Omnipaque 350; 100 mL IV. Oral contrast: Yes. DLP: 1253.18 mGy.cm COMPARISON: None available. Lower thorax: Benign granuloma RIGHT lung base. Heart is normal size. Small hiatal hernia. Liver/biliary system: Liver is top normal size. Diffuse low-attenuation from hepatic steatosis. No intrahepatic duct dilatation. Normal portal vein. Gallbladder: Well-distended gallbladder. Increased attenuation within the gallbladder. Gallstones are suspected. No common bile duct dilatation. Pancreas: Normal size pancreas and pancreatic duct. No adjacent inflammation. Spleen: Normal size spleen. No mass or infarct. Adrenal glands: Normal. Right kidney: Normal. Left kidney: Normal. Aorta: Normal. Lymphadenopathy: None. Free fluid: None. GI tract: Normally distended stomach. No small bowel obstruction. Normal appendix. Moderate constipation in the RIGHT colon. No colitis. Abdominal wall: Fat containing umbilical hernia. Pelvis: No free fluid or adenopathy within the pelvis. Bones: Unremarkable. CT/CT abdomen pelvis w con* [id number] IMPRESSION: 1. Variable density in the gallbladder. Gallstones suspected. There is no wall thickening or adjacent inflammation to suggest acute cholecystitis. Recommend RIGHT upper quadrant ultrasound. 2. Liver top normal size with diffuse hepatic steatosis. 3. No renal obstruction. 4. No GI tract obstruction or colitis. 5. No adenopathy or free fluid.
[2025-08-04] MEDS: iohexol 350 mg/mL 500 mL Btl (per mL) PO (16:57)
[2025-08-04] MEDS: iohexol 350 mg/mL 500 mL Btl (per mL) IV (16:57)
== END 2025-08-04 15:36 | disposition home or self-care (01) ==
LOC: RAD 15:37
PROVIDERS: PCP Family Medicine; Visit Provider Family Medicine
DX: R10.9 Unspecified abdominal pain (principal); K42.9 Umbilical hernia without obstruction or gangrene; K76.0 Fatty (change of) liver, not elsewhere classified; K59.09 Other constipation
CPT/HCPCS: 74177